=== PATIENT | female | born 1975 | race Hispanic/Latino ===

== ENCOUNTER 2019-06-20 00:36 | Emergency (ER) | payer OTHER ==
[2019-06-20 00:56] LABS: APPEARANCE,URINE Clear (CLEAR); BILIRUBIN,URINE Negative (NEGATIVE); COLOR,URINE Yellow (YELLOW); GLUCOSE, URINE (UA) TRACE mg/dL (NEGATIVE); KETONES,URINE Negative (NEGATIVE); LEUKOCYTE ESTERASE ,URINE Negative (NEGATIVE); NITRATE,URINE Negative (NEGATIVE); OCCULT BLOOD,URINE Negative (NEGATIVE); PROTEIN,URINE Negative (NEGATIVE)
[2019-06-20] MEDS ORDERED: KETOROLAC TROMETHAMINE 30MG/ML ONE (00:57)
[2019-06-20] MEDS ORDERED: CEFTRIAXONE SODIUM 1 GM ONE (00:57)
[2019-06-20] MEDS ORDERED: DEXAMETHASONE SOD PHOSPHATE 10MG/ML 1ML VIAL ONE (00:57)
[2019-06-20] MEDS ORDERED: IPRATROPIUM/ALBUTEROL SULFATE 3 ML SOLUTION IH ONE (01:21)
== END 2019-06-20 03:08 | disposition home or self-care (01) ==
LOC: EDH 00:36
DX: J20.9 Acute bronchitis, unspecified (principal); Z90.49 Acquired absence of other specified parts of digestive tract; Z90.710 Acquired absence of both cervix and uterus; Z98.890 Other specified postprocedural states
CPT/HCPCS: 71046; 81003; 87804 ×2; 94640; 96374; 96375; 99284; J0696; J1100; J1885